=== PATIENT | female | born 1985 | race Caucasian/White ===

== ENCOUNTER 2019-11-21 22:24 | Inpatient (IN) | payer OTHER ==
[~2019-11-21] VITALS: Ht 165.1 cm; Wt 72.9 kg
[2019-11-21 22:31] VITALS: BP 136/87
[2019-11-21 23:34] LABS: HEMOGLOBIN 12.6 g/dl (12.0-15.5); MEAN CORPUSCULAR HEMOGLOBIN 32.1 pg (27.0-33.0); MEAN CORPUSCULAR VOLUME 91.6 fl (80.0-96.0); PLATELET COUNT, AUTOMATED 222 10^3/uL (150-450); RED BLOOD COUNT 3.93 10^6/uL (4.00-5.40)
[2019-11-21] MEDS ORDERED: FENTANYL 2MCG/ML ROPIVACAINE 0.2% IN 0.9% NACL 100ML IVBAG As Ordered ONE (23:45)
[2019-11-22] VITALS (7 sets, daily range): BP systolic 116–163; BP diastolic 66–89
[2019-11-22] MEDS ORDERED: OXYTOCIN 30 UNITS IN 0.9% NaCl 500ML IV BAG (J2590) As Ordered ONE (00:06)
--- NOTE | 2019-11-22 01:23 | HPEPDOC ---
Obstetrical History & Physical General Date of Admission Nov 21, 2019 at 22:46 History of Present Illness Patient reports painful ctx's worsening in frequency since membrane stripping earlier today. Endorses light VB. Denies LOF or DFM. Chief Complaint: Contractions, term, Vaginal Bleeding, Active Labor Information Provided By: Patient Age: 34 : 1 Care Care: Good Care Dating Final EDC: Nov 21, 2019 Final EDC for Daily Update: Nov 21, 2019 Final EDC by: LMP EGA at Admission: 40 (+0) Antepartum Course Diagnos(e)s HSVII Height (inches): 65.5 Pre- weight (lbs.): 128 Admission Weight (lbs.): 159 Change in Weight (lbs.): 31 Past Medical History Past Obstetrical History : Past Obstetrical History: Primgravida Past Medical History Medical History HSV II Surgical History: Appendectomy (2002) Family History Significant Family History: Cancer (PGF - Leukemia, MGM - Melanoma), Diabetes (PGM), Heart disease (M - from [place] at 59yrs, MGF), Hyperlipidemia (M) Social History Marital Status: Family situation: Spouse/partner home Psychosocial History: No pertinent psych hx * Smoker: non-smoker Alcohol: Denies Drugs: denies Abuse Violence Screening Have you been hit/kicked/slapp: No Have you been sexually assault: No Physical Examination Physical Examination GENERAL: Alert and oriented times three. ABDOMEN: Gravid and non-tender to touch. FETUS: Is vertex (VTX) by sterile vaginal examination (SVE), fetus is vertex (VTX) by Donovan. EXTREMITIES: No edema. No clonus. Deep tendon reflexes (DTRs) + . SVE: no herpes lesions identified. NEFG. Laboratory Data [facility] Laboratory Tests 2 11/21/19 22:58: Serology Scanned Report Hepatitis B Testing 11/21/19 23:25: Nucleated Red Blood Cells % (auto) 0.0 CBC/BMP Laboratory Tests 11/21/19 23:25 Pertinent Laboratoy Data Blood Type: A+ RBC Antibody Screen: Negative HIV: Negative Hepatitis B: Negative Rapid Plasma Reagin: Immune Rubella: Immune Varicella: Immune Chlamydia/Gonorrhea: Negative Group B Streptococcus: Negative Cystic Fibrosis: Negative Glucose Tolerance Test: 101 Anatomy Ultrasound Ultrasound Date: Jun 04, 2019 Placenta Location: Posterior Normal Anatomy: No (left choroid plexus cyst - resolved on repeat imaging) Vaginal Examination Dilation: 9 cm Effacement: 100% Station: 0 Cervical Consistency: Soft Cervical Position: Anterior Presentation: Cephalic presentation Assessment Heart Rate (FHR): 120 Variability: Moderate Accelerations: None Decelerations: None Tocometer Contractions: Yes Frequency: every 1-3 min. Multi-drug resistant Organism: No history of MDRO Assessment/Plan Assessment 34yo at 40+0wks admitted for active labor. Speculum exam revealed no lesions. GBS negative. EFW 3400g Plan Admit and orient. Burial Agent and consent. Diet: regular as tolerated Group B Streptococcus (GBS) negative. Labs and intravenous (IV) per unit protocol. Lactated Ringers (LR): Bolus 1000 mL, then at 125mL/hr. Anticipate normal spontaneous delivery (). C-S as appropriate. MUNIR POOL DO Nov 22, 2019 01:23
--- NOTE | 2019-11-22 01:30 | DNPDOC ---
[facility] Delivery Note Delivery Note DATE OF DELIVERY: 11/22/2019 PREDELIVERY DIAGNOSIS: 40+1/7 weeks' gestation and labor. POST DELIVERY DIAGNOSIS: Delivered. PROCEDURE: Spontaneous vaginal delivery. KITCHEN STEWARD/STEWARDESS: Dr. Munir Pool ANESTHESIA: Pudendal nerve block ESTIMATED BLOOD LOSS: 200 mL. FINDINGS: 7 pound 13 ounce 3530g male infant, Score 8/8, no nuchal cord, terminal meconium noted DELIVERY SUMMARY: Calli presented in active labor. Unable to receive epidural due to rapid progress to c/c/+1 upon admission. Patient with SROM of clear fluid and started having involuntary pushing. Patient requested pudendal nerve block that was performed using 1% lidocaine plain. Patient requested to be in hands-knees position and squat into pushing which was obliged. With excellent maternal effort, spontaneous vaginal delivery of a viable term male infant. Presentation was OA with restitution to LOT with right shoulder anterior position. Anterior shoulder and body delivered without difficulty. No nuchal cord. Terminal meconium appreciated. passed through patient's legs where patient picked up and brought to her chest. Patient was assisted to lithotomy position. After 5 minutes of delayed cord clamping, three vessel cord clamped x2 and cut by FOB. Pitocin IV bolus initiated. Third stage spontaneous with intact placenta. Inspection revealed 2nd degree perineal laceration that was repaired in routine fashion using 2-0 vicryl with good approximation of tissue and hemostasis. EBL 200ml. Mother and infant stable and bonding upon my leaving the room. MUNIR POOL DO Nov 22, 2019 01:30
[2019-11-23 06:00] VITALS: BP 111/62
[2019-11-23] MEDS ORDERED: DOCU100C16 PO (07:25)
[2019-11-23] MEDS ORDERED: DIBU10OI TOP (07:25)
[2019-11-23] MEDS ORDERED: IBUP80TA PO (07:25)
[2019-11-23 18:00] VITALS: BP 113/63
[2019-11-24 06:02] VITALS: BP 129/82
--- NOTE | 2019-11-24 15:59 | IPN ---
DATE: 11/22/2019 A 34-year-old 1, now para 1, admitted at 40 and 1 weeks of gestation with contractions. Had a spontaneous vaginal delivery, male , 7 pounds 13 ounces, 3530 grams, scores of 8 and 8 at one and five minutes, respectively. Terminal meconium was noted. She had a pudendal nerve block. Second-degree perineal tear was oversewn in the usual fashion. On her first day her hemoglobin was 12.6, hematocrit 36.0, and platelets were 222. Vital signs today: Her blood pressure is 119/72, respirations 16, pulse 103, temperature 98.9. The rest of the examination is unremarkable. She is normocephalic, atraumatic. Neck: Full range of motion. Pupils equal and reactive to light. Distal pulses are symmetric. No evidence of deep venous thrombosis (DVT), pulmonary embolus (PE), or superficial phlebitis. Chest is clear bilaterally to bases. No wheezes or rhonchi. No costovertebral angle (CVA) tenderness. Abdomen is soft. Four-quadrant bowel sounds are noted. Uterus is 2 below. Perineum is intact. No rashes, lesions or pruritus. No arthralgia, myalgia. No complaint of joint pain. No complaints of cough, wheeze, shortness of breath, or dyspnea on exertion. No nausea, vomiting, diarrhea, or constipation. No urgency or frequency. Breast-feeding is going well. She is pumping as well. Pain is controlled by analgesia. Plans are for discharge tomorrow. Medications were dispensed at [place]. Have 6- week checkup at [facility]. All questions were answered. A 20- minute discussion. [facility]
--- NOTE | 2019-11-26 09:49 | DS ---
DATE OF ADMISSION: 11/21/2019 DATE OF DISCHARGE: 11/23/2019 A 34-year-old 1, now para 1, admitted with contractions at 40 and 1 weeks of gestation. Delivered a male, 7 pounds 13 ounces, 3530 grams, scores of 8 and 8 at one and five minutes, respectively. She had a pudendal nerve block for repair of a second degree. Baby was found to have dextrocardia. On discharge, mother's blood pressure 111/62, respirations 16, pulse 79, temperature 97.9. Her admitting hemoglobin was 12.6, hematocrit 36.0, and platelets 222. The rest of the examination is unremarkable. Normocephalic, atraumatic. Neck: Full range of motion. Pupils equal and reactive to light. Distal pulses are symmetric. No evidence of deep venous thrombosis (DVT), pulmonary embolus (PE), or superficial phlebitis. Chest is clear bilaterally to bases. No wheezes or rhonchi. No costovertebral angle (CVA) tenderness. Abdomen soft. Four-quadrant bowel sounds are noted. Uterus 2 below. Lochia is moderate. Perineum is healing. No rashes, lesions, or pruritus. No arthralgia or myalgia. No complaint of joint pain. No complaints of cough, wheeze, shortness of breath, or dyspnea on exertion. No nausea, vomiting, diarrhea, or constipation. No urgency or frequency. Baby is presently in the intensive care unit (NICU) and is presently under observation. PLAN: Medications are dispensed at [place]. Patient to have a 6-week checkup at [facility]. All questions were answered. Possibility of making her a border may be entertained; however, has to leave the floor. Patient expressed understanding of the plan of care. [facility]
== END 2019-11-24 12:30 | disposition home or self-care (01) | DRG 807 ==
LOC: M LDO 22:24 → M LDI 22:46 → M OBS 11-22 02:24
PROC: 10E0XZZ Delivery of Products of Conception, External Approach (ICD-10-PCS; principal; 2019-11-22)
PROC: 0KQM0ZZ Repair Perineum Muscle, Open Approach (ICD-10-PCS; 2019-11-22)
DX: O48.0 Post-term pregnancy (principal); Z37.0 Single live birth; Z3A.40 40 weeks gestation of pregnancy; O77.0 Labor and delivery complicated by meconium in amniotic fluid; O70.1 Second degree perineal laceration during delivery

== ENCOUNTER → 2022-02-16 | Outpatient (REF) | payer OTHER ==
[~2022-02-16] MED LIST: DIBU28OI2 TOP; DOCU100C16 PO; IBUP80TA PO
== END ==
LOC: M LAB REF 15:39
PROVIDERS: ATTEND Obstetrics & Gynecology
DX: Z3A.38 38 weeks gestation of pregnancy (principal)